=== PATIENT | male | born 1975 | race Caucasian/White ===

== ENCOUNTER 2017-05-11 12:36 | Emergency (ER) | payer MEDICAID ==
[2017-05-11 13:38] LABS: BASOPHILS % (AUTO) 0.3 %; EOSINOPHILS # (AUTO) 0.3 10^3/uL (0.0-0.7); EOSINOPHILS % (AUTO) 2.5 %; HGB - HEMOGLOBIN 15.3 g/dL (14.0-18.0); LYMPHOCYTES # (AUTO) 2.7 10^3/uL (1.5-3.5); LYMPHOCYTES % (AUTO) 24.9 %; MEAN CORPUSCULAR HEMOGLOBIN 30.1 pg (27.0-31.0); MEAN CORPUSCULAR HGB CONC 34.7 g/dL (32.0-36.0); MEAN CORPUSCULAR VOLUME 86.8 fL (80.0-94.0); MEAN PLATELET VOLUME 9.5 fL (7.4-11.4); MONOCYTES # (AUTO) 0.9 10^3/uL (0.0-1.0); MONOCYTES % (AUTO) 8.3 %; NEUTROPHILS # (AUTO) 6.8 10^3/uL (1.5-6.6); PLT - PLATELET COUNT 214 10^3/uL (130-450); RED BLOOD COUNT 5.07 10^6/uL (4.70-6.10); RED CELL DISTRIBUTION WIDTH 13.3 % (12.0-15.0); WHITE BLOOD COUNT 10.7 x10^3/uL (4.8-10.8)
[2017-05-11 14:03] LABS: ALBUMIN 4.9 g/dL (3.2-5.5); ALBUMIN/GLOBULIN RATIO 1.5 (1.0-2.2); ALKALINE PHOSPHATASE 83 IU/L (42-121); ALT ALANINE AMINOTRANSFERASE 36 IU/L (10-60); AST ASPARTATE AMINOTRANSFERASE 26 IU/L (10-42); BUN - BLOOD UREA NITROGEN 15 mg/dL (6-20); CALCIUM 7.1 mg/dL (8.5-10.3); CARBON DIOXIDE - CO2 24 mmol/L (21-32); CHLORIDE 101 mmol/L (101-111); CREATININE 0.8 mg/dL (0.6-1.2); GFR - MDRD 107 (>89); GLUCOSE 103 mg/dL (70-100); LIPASE 27 U/L (22-51); SALICYLATE < 6.0 mg/dL; SODIUM 140 mmol/L (135-145); TOTAL PROTEIN 8.2 g/dL (6.7-8.2)
[2017-05-11 14:05] LABS: ACETAMINOPHEN < 10 ug/mL (10-30)
--- NOTE | 2017-05-11 14:59 | ED Physician Documentation ---
PD HPI MHE - Stated complaint Stated Complaint: MHE - Chief complaint Chief Complaint: MHE - History obtained from History obtained from: Patient - History of Present Illness Primary symptom: Suicidal ideation, Depression, Anxiety. No: Suicide attempt Timing - onset: How many weeks ago (several) Contributing factors: Out of meds. No: Substance abuse - ETOH, Substance abuse - drugs (had been several months since drug use.) Recently seen: Not recently seen (has not had antidepressants for over 6 months. Was on antipsychoitic but felt it did not help him. The antidepressant did help. Had run out and is now moved here.) Review of Systems Constitutional: denies: Fever, Chills Nose: denies: Rhinorrhea / runny nose, Congestion Throat: denies: Sore throat Cardiac: denies: Chest pain / pressure Respiratory: denies: Dyspnea, Cough GI: denies: Abdominal Pain, Vomiting, Diarrhea Musculoskeletal: denies: Neck pain, Back pain Neurologic: denies: Focal weakness, Altered mental status, Headache, Head injury Psychiatric: reports: Depressed, Suicidal (ideation without current plan), Anxiety. denies: Hallucinations, Delusions PD PAST MEDICAL HISTORY - Past Medical History Cardiovascular: None Respiratory: None Neuro: None Endocrine/Autoimmune: HyPOthyroidism GI: None Psych: Depression, Anxiety - Past Surgical History Past Surgical History: Yes HEENT: Tracheostomy - Present Medications Home Medications: Ambulatory Orders Medication Instructions Recorded Confirmed Levothyroxine Sodium [Synthroid] 150 mcg PO DAILY 05/11/17 05/11/17 Lorazepam [Ativan] 1 mg PO BID PRN #20 tablet 05/11/17 Mirtazapine 15 mg PO DAILY #30 tablet 05/11/17 - Allergies Allergies/Adverse Reactions: Allergies Allergy/AdvReac Type Severity Reaction Status Date / Time levofloxacin [Levofloxacin] Allergy Intermediate Hives Verified 05/11/17 12:45 - Social History Does the pt smoke?: No Smoking Status: Never smoker Does the pt drink ETOH?: No Does the pt have substance abuse?: Yes - Immunizations Immunizations are current?: Yes - POLST Patient has POLST: No PD ED PE NORMAL - Vitals Vital signs reviewed: Yes - General General: Alert and oriented X 3, Well developed/nourished - HEENT HEENT: Atraumatic - Neck Neck: Supple, no meningeal sign, No adenopathy, Thyroid normal - Cardiac Cardiac: RRR, No murmur - Respiratory Respiratory: Clear bilaterally - Derm Derm: Normal color, Warm and dry, No rash - Neuro Neuro: Alert and oriented X 3, No motor deficit, Normal speech - Psych Psych: Normal affect. No: Normal mood (somewhat depressed) Results - Vitals Vitals: Oxygen O2 Source Room air - Labs Labs: Laboratory Tests 05/11/17 05/11/17 05/11/17 13:30 13:30 13:30 WBC 10.7 RBC 5.07 Hgb 15.3 Hct 44.0 MCV 86.8 MCH 30.1 MCHC 34.7 RDW 13.3 Plt Count 214 MPV 9.5 Neut # 6.8 H Lymph # 2.7 [place] # 0.9 Eos # 0.3 Baso # 0.0 Absolute Nucleated RBC 0.03 Nucleated RBC % 0.3 Sodium 140 Potassium 3.7 Chloride 101 Carbon Dioxide 24 Anion Gap 15.0 H BUN 15 Creatinine 0.8 Estimated GFR (MDRD) 107 Glucose 103 H Calcium 7.1 L Total Bilirubin 1.0 AST 26 ALT 36 Alkaline Phosphatase 83 Total Protein 8.2 Albumin 4.9 Globulin 3.2 Albumin/Globulin Ratio 1.5 Lipase 27 TSH 1.57 Urine Color Urine Clarity Urine pH Ur Specific [place] Urine Protein Urine Glucose (UA) Urine Ketones Urine Occult Blood Urine Nitrite Urine Bilirubin Urine Urobilinogen Ur Leukocyte Esterase Ur Microscopic Review Urine Culture Comments Salicylates < 6.0 Urine Opiates Screen Ur Oxycodone Screen Urine Methadone Screen Ur Propoxyphene Screen Acetaminophen < 10 L Ur Barbiturates Screen Ur Tricyclics Screen Ur Phencyclidine Scrn Ur Amphetamine Screen U Methamphetamines Scrn U Benzodiazepines Scrn Urine Cocaine Screen U Cannabinoids Screen Ethyl Alcohol < 5.0 05/11/17 16:45 WBC RBC Hgb Hct MCV MCH MCHC RDW Plt Count MPV Neut # Lymph # [place] # Eos # Baso # Absolute Nucleated RBC Nucleated RBC % Sodium Potassium Chloride Carbon Dioxide Anion Gap BUN Creatinine Estimated GFR (MDRD) Glucose Calcium Total Bilirubin AST ALT Alkaline Phosphatase Total Protein Albumin Globulin Albumin/Globulin Ratio Lipase TSH Urine Color YELLOW Urine Clarity CLEAR Urine pH 5.5 Ur Specific [place] 1.015 Urine Protein NEGATIVE Urine Glucose (UA) NEGATIVE Urine Ketones 15 H Urine Occult Blood NEGATIVE Urine Nitrite NEGATIVE Urine Bilirubin NEGATIVE Urine Urobilinogen 0.2 (NORMAL) Ur Leukocyte Esterase NEGATIVE Ur Microscopic Review NOT INDICATED Urine Culture Comments NOT INDICATED Salicylates Urine Opiates Screen NEGATIVE Ur Oxycodone Screen NEGATIVE Urine Methadone Screen NEGATIVE Ur Propoxyphene Screen NEGATIVE Acetaminophen Ur Barbiturates Screen NEGATIVE Ur Tricyclics Screen NEGATIVE Ur Phencyclidine Scrn NEGATIVE Ur Amphetamine Screen NEGATIVE U Methamphetamines Scrn NEGATIVE U Benzodiazepines Scrn NEGATIVE Urine Cocaine Screen NEGATIVE U Cannabinoids Screen POSITIVE H Ethyl Alcohol PD MEDICAL DECISION MAKING - ED course Complexity details: reviewed results, considered differential, d/w patient, d/w computer systems consultant ([employer] and then [employer]) Departure - Departure Disposition: 01 Home, Self Care Clinical Impression: Suicidal ideation Depression Qualifiers: Depression Type: major depressive disorder Major depression recurrence: recurrent Active/Remission status: currently active Major depression episode severity: moderate Qualified Code(s): F33.1 - Major depressive disorder, recurrent, moderate Condition: Stable Record reviewed to determine appropriate education?: Yes Instructions: ED Depression Follow-Up: Kyrie Pathak MD [Primary Care Provider] - [facility] [Provider Group] Prescriptions: Lorazepam [Ativan] 1 mg PO BID PRN #20 tablet PRN Reason: Anxiety Mirtazapine 15 mg PO DAILY #30 tablet Comments: Drink lots of fluids. Start mirtazapine antidepressant daily. You can use Lorazepam twice daily if needed for anxiety if needed until the antidepressant starts becoming effective. This typically takes a couple of weeks. Follow-up with [facility] on Sunday as scheduled. Return sooner if worsen. Call the crisis line if needed for someone to talk to. Discharge Date/Time: 05/11/17 19:55
[2017-05-11 16:47] LABS: MUDS CUTOFF CONCENTRATIONS CUTOFF CONC BELOW:
[2017-05-11 16:52] LABS: BILIRUBIN,URINE NEGATIVE (NEGATIVE); GLUCOSE, URINE (UA) NEGATIVE (NEGATIVE); KETONES,URINE (UA) 15 mg/dL (NEGATIVE); LEUKOCYTE ESTERASE, URINE NEGATIVE (NEGATIVE); NITRITE,URINE NEGATIVE (NEGATIVE); OCCULT BLOOD,URINE NEGATIVE (NEGATIVE); PH,URINE 5.5 PH (5.0-7.5); PROTEIN,URINE NEGATIVE (NEGATIVE); UROBILINOGEN,URINE 0.2 (NORMAL) E.U./dL (NORMAL)
[2017-05-11 17:01] LABS: CLARITY,URINE CLEAR (CLEAR)
[2017-05-11 17:03] LABS: AMPHETAMINE SCREEN,URINE NEGATIVE (NEGATIVE); BENZODIAZEPINES SCREEN, URINE NEGATIVE (NEGATIVE); COCAINE SCREEN URINE NEGATIVE (NEGATIVE); METHADONE SCREEN, URINE NEGATIVE (NEGATIVE); METHAMPHETAMINES SCREEN, URINE NEGATIVE (NEGATIVE); OPIATE SCREEN, URINE NEGATIVE (NEGATIVE); OXYCODONE SCREEN, URINE NEGATIVE (NEGATIVE); PROPOXYPHENE SCREEN, URINE NEGATIVE (NEGATIVE); TRICYCLIC ANTIDEPRESSANT,URINE NEGATIVE (NEGATIVE)
[2017-05-11] MEDS ORDERED: LORazepam 0.5 MG TABLET PO STA (18:07)
[2017-05-11 19:33] VITALS: BP 120/87
== END 2017-05-11 19:55 | disposition home or self-care (01) ==
LOC: ED 12:36
DX: F33.1 Major depressive disorder, recurrent, moderate (principal); R45.851 Suicidal ideations; E03.9 Hypothyroidism, unspecified
CPT/HCPCS: 36415; 80053; 80306; 80307; 80320; 80329; 81003; 83690; 84443; 85025; 99283; A9270; 81001; 87086

== ENCOUNTER 2017-10-06 19:09 | Outpatient (CLI) | payer MEDICAID | END 2017-10-06 19:10 | disposition critical access hospital (66) | LOC: EMS 19:09 | PROVIDERS: ATTEND Surgery | DX: I46.9 Cardiac arrest, cause unspecified (principal) | CPT/HCPCS: A0425; A0433 ==

== ENCOUNTER 2017-10-06 19:22 | Emergency (ER) | payer MEDICAID ==
--- NOTE | 2017-10-06 19:31 | ED Physician Documentation ---
PD HPI CPR - Stated complaint Stated Complaint: CPR - Chief complaint Chief Complaint: Cardiac - History obtained from History obtained from: EMS - History of Present Illness Timing - onset: How many hours ago (1) Timing - onset during: Eating Preceding symptoms: Other (choking) Contributing factors: Choked Recently seen: Not recently seen Witnessed: Arrest witnessed Bystander CPR: Bystander CPR EMS findings: Unresponsive, Apneic, Pulseless, Asystole ( epi x 5 with EMS) Treatment SHIFT LAB TECHNICIAN: CPR, Intubated, Epi Review of Systems Unable to obtain: Unresponsive PD PAST MEDICAL HISTORY - Past Medical History Cardiovascular: None Respiratory: None Endocrine/Autoimmune: HyPOthyroidism GI: None Psych: Depression, Anxiety - Past Surgical History Past Surgical History: Yes HEENT: Tracheostomy - Present Medications Home Medications: Ambulatory Orders Medication Instructions Recorded Confirmed Levothyroxine Sodium [Synthroid] 150 mcg PO DAILY 05/11/17 07/12/17 Venlafaxine HCl [Venlafaxine HCl 150 mg PO DAILY 06/07/17 07/12/17 ER] risperiDONE [Risperidone] 4 mg PO DAILY PM 06/07/17 07/12/17 - Allergies Allergies/Adverse Reactions: Allergies Allergy/AdvReac Type Severity Reaction Status Date / Time levofloxacin [Levofloxacin] Allergy Intermediate Hives Verified 06/07/17 14:35 - Social History Does the pt smoke?: No Smoking Status: Never smoker Does the pt drink ETOH?: No Does the pt have substance abuse?: Yes - Immunizations Immunizations are current?: Yes - POLST Patient has POLST: No PD ED PE NORMAL - Vitals Vital signs reviewed: Yes - General General: Other (unresponsive) - HEENT HEENT: Other (pupils fixed and dilated) - Neck Neck: Other (no external trauma) - Cardiac Cardiac: Other (absent heart sounds) - Respiratory Respiratory: Other (R > L breath sounds with bagging) - Abdomen Abdomen: Non distended - Derm Derm: Other (cool, pale) - Extremities Extremities: No deformity - Neuro Neuro: Other (unresponsive) Results - Vitals Vitals: Oxygen O2 Source Room air PD MEDICAL DECISION MAKING - ED course Complexity details: considered differential, d/w family ED course: 1926 time of Patient is a 42-year-old male with a history of multiple sclerosis. He had a witnessed cardiac arrest approximately 1 hour prior to arrival in the emergency department. Never had return of spontaneous circulation. Multiple rounds of epinephrine and continued CPR for over an hour prior to arrival. Cardiac standstill on ultrasound in the emergency department. Asystole confirmed in multiple leads. Pupils fixed and dilated. Mother was present in the waiting room and was informed of the patient's . supervisor sheet manufacturing present during the conversation. This document was made in part using voice recognition software. While efforts are made to proofread this document, sound alike and grammatical errors may occur. Departure - Departure Disposition: 20 Clinical Impression: Cardiac arrest Discharge Date/Time: 10/06/17 19:27
== END 2017-10-06 19:27 | disposition expired ==
LOC: EDUNIT# → ED 19:22
DX: I46.9 Cardiac arrest, cause unspecified (principal); E03.9 Hypothyroidism, unspecified; G35 Multiple sclerosis
CPT/HCPCS: 99281; 99284